=== PATIENT | female | born 1970 | race African-American/Black ===

== ENCOUNTER → 2019-12-25 | Outpatient (CLI) | payer MEDICARE, MEDICAID | END | disposition home or self-care (01) | LOC: RAD 09:20 | PROVIDERS: ATTEND Podiatrist Foot & Ankle Surgery | DX: M77.51 Other enthesopathy of right foot and ankle (principal); M25.774 Osteophyte, right foot | CPT/HCPCS: 73650 ==

== ENCOUNTER → 2022-08-23 | Day surgery (SDC) | payer MEDICARE, MEDICAID ==
[~2022-08-23] MED LIST: ACETAMINOPHEN 325MG TABLET PO PRN; ALBU18HF2 IH; ARIP2TAB16 PO; ASCO-339 PO; ASPI-1497 PO; ASPIRIN/SOD BICARB/CITRIC ACID 324MG TAB EFF ONE; CARB200T6 PO; CLON0.1T PO; CRES10 PO; FENTANYL CITRATE/PF 50MCG/ML 2ML VIAL ONE; HALO2TAB PO; HEPARIN 1000 UNITS/ML 10ML ONE; HYDR-4135 MT; IODIXANOL 320MG/ML 100 ML BOTTLE IV ONE; LIDOCAINE HCL/PF 1% 10 MG/ML 5ML VIAL ONE; METF-873 PO; MIDAZOLAM HCL 2 MG/2 ML VIAL ONE; MORPHINE SULFATE 2 MG/ML CPJ (NOT FOR IM USE) IV PRN; NALOXONE HCL 0.4MG/ML VIAL IV PRN; ONDANSETRON HCL 4MG/2ML INJ IV PRN; POTA-79 PO; SPIR25TA6 MT; TOPI50TA24 MT; VIT1TABL62 PO
== END | disposition home or self-care (01) ==
LOC: CCL 08:18
PROVIDERS: ATTEND Specialist
DX: I25.10 Atherosclerotic heart disease of native coronary artery without angina pectoris (principal); I11.9 Hypertensive heart disease without heart failure; E11.9 Type 2 diabetes mellitus without complications; E78.5 Hyperlipidemia, unspecified; G47.33 Obstructive sleep apnea (adult) (pediatric); E66.3 Overweight; Z79.82 Long term (current) use of aspirin; Z79.899 Other long term (current) drug therapy; Z98.890 Other specified postprocedural states; Z79.84 Long term (current) use of oral hypoglycemic drugs; Z88.0 Allergy status to penicillin
CPT/HCPCS: 93458; 99152; C1769; C1887; C1893; J1644; J2250; J3010; J3490; Q9967; G0500

== ENCOUNTER 2024-06-21 07:20 | Emergency (ER) | payer MEDICARE, OTHER ==
[~2024-06-21] VITALS: Ht 170.2 cm; Wt 109.0 kg
[~2024-06-21 07:20] MED LIST changes: -ACETAMINOPHEN 325MG TABLET PO PRN; -ARIP2TAB16 PO; +ARIP2TAB66 PO; -ASPIRIN/SOD BICARB/CITRIC ACID 324MG TAB EFF ONE; -FENTANYL CITRATE/PF 50MCG/ML 2ML VIAL ONE; -HEPARIN 1000 UNITS/ML 10ML ONE; -HYDR-4135 MT; +HYDR50TA40 MT; -IODIXANOL 320MG/ML 100 ML BOTTLE IV ONE; -LIDOCAINE HCL/PF 1% 10 MG/ML 5ML VIAL ONE; -MIDAZOLAM HCL 2 MG/2 ML VIAL ONE; -MORPHINE SULFATE 2 MG/ML CPJ (NOT FOR IM USE) IV PRN; -NALOXONE HCL 0.4MG/ML VIAL IV PRN; -ONDANSETRON HCL 4MG/2ML INJ IV PRN; +POTA-354 PO; -POTA-79 PO; +TOPI-95 MT; -TOPI50TA24 MT
[2024-06-21 07:27] VITALS: TEMP 98.9; O2SAT 100
[2024-06-21] MEDS: IBUPROFEN 600MG TABLET PO ONE (08:50)
[2024-06-21] MEDS ORDERED: IBUP-2029 MT (10:01)
[2024-06-21 10:34] VITALS: BP 155/96; PULSE 67; RESP 18; O2SAT 100
== END 2024-06-21 10:37 | disposition home or self-care (01) ==
LOC: ER 07:56
DX: M77.32 Calcaneal spur, left foot (principal); E11.9 Type 2 diabetes mellitus without complications; I10 Essential (primary) hypertension; Z88.0 Allergy status to penicillin; Z79.899 Other long term (current) drug therapy; Z98.890 Other specified postprocedural states; Z90.710 Acquired absence of both cervix and uterus
CPT/HCPCS: 73630; 99283

== ENCOUNTER 2024-10-19 06:12 | Emergency (ER) | payer MEDICARE, OTHER ==
[~2024-10-19] VITALS: Ht 170.2 cm; Wt 108.0 kg
[~2024-10-19 06:12] MED LIST changes: +IBUP-2029 MT; +METF-1149 PO; -METF-873 PO
[2024-10-19 06:46] VITALS: O2SAT 100
[2024-10-19] MEDS ORDERED: ACET-2708 MT (07:54)
[2024-10-19] MEDS: ACETAMINOPHEN 325MG TABLET PO ONE (09:27)
[2024-10-19 09:32] VITALS: BP 183/105; PULSE 76; RESP 18; TEMP 36.78072; O2SAT 99
== END 2024-10-19 09:34 | disposition home or self-care (01) ==
LOC: ER 06:12
DX: S93.409A Sprain of unspecified ligament of unspecified ankle, initial encounter (principal); E11.9 Type 2 diabetes mellitus without complications; I10 Essential (primary) hypertension; Z79.899 Other long term (current) drug therapy; Z90.710 Acquired absence of both cervix and uterus; Z88.0 Allergy status to penicillin; X50.1XXA Overexertion from prolonged static or awkward postures, initial encounter; Y93.89 Activity, other specified; Y92.89 Other specified places as the place of occurrence of the external cause; Y99.8 Other external cause status
CPT/HCPCS: 73610; 99283